=== PATIENT | female | born 1960 | race African-American/Black ===

== ENCOUNTER 2017-01-07 09:26 | Day surgery (SDC) | payer OTHER ==
[2017-01-03 15:56] VITALS: BMI 20.9
[2017-01-07] MEDS ORDERED: LIDOCAINE HCL 1%, 10 MG/ML (20ML VIAL) ONE (10:56)
[2017-01-07] MEDS ORDERED: GENTAMICIN SO4 80 MG/2 ML VIAL ONE (10:58)
[2017-01-07] MEDS ORDERED: EPINEPHrine/PF 1 MG/1 ML (1:1,000) AMPULE ONE (10:58)
[2017-01-07] MEDS ORDERED: ceFAZolin SODIUM 1 GM VIAL ONE ×2 (10:58→11:04)
[2017-01-07] MEDS ORDERED: LIDOCAINE HCL 2% JELLY (5 ML/TUBE) ONE (11:04)
[2017-01-07] MEDS ORDERED: LIDOCAINE HCL/PF 2% SDV 5ML VIAL ONE (11:04)
[2017-01-07] MEDS ORDERED: ONDANSETRON 4 MG/2 ML VIAL ONE ×2 (11:04→14:03)
[2017-01-07] MEDS ORDERED: MIDAZOLAM HCL 2 MG/2 ML SINGLE DOSE VIAL ONE (11:04)
[2017-01-07] MEDS ORDERED: DEXAMETHASONE SOD PHOSPHATE 4 MG/1 ML VIAL ONE (11:04)
[2017-01-07] MEDS ORDERED: PROPOFOL 20 ML ONE (11:04)
[2017-01-07] MEDS ORDERED: SCOPOLAMINE HYDROBROMIDE 1 PATCH PATCH.TD72 ONE (12:06)
[2017-01-07] MEDS ORDERED: ePHEDrine SULFATE 50 MG/1 ML AMPULE ONE (12:08)
[2017-01-07] MEDS ORDERED: DESFLURANE GAS 240 ML BOTTLE IH ONE (12:46)
[2017-01-07] MEDS ORDERED: LACTATED RINGERS SOLUTION 1,000 ML IV SCH (13:45)
--- NOTE | 2017-01-07 13:47 | OP ---
Operative Note - Note: Operative Date: 01/07/17 Pre-Operative Diagnosis: Aquired chest wall deformity Operation: Bilateral silicone implant placement and fat grafting from abd/flank to bilateral breasts. Findings: Asymmetry s/p left breast lumpectomy Post-Operative Diagnosis: Same as Pre-op Surgeon: Arthur Valentine Project Management Advisor: Helen Quiles Anesthesia: MAC Estimated Blood Loss (mls): 20 Drains & Tubes with Location: none Operative Report Dictated: Yes
[2017-01-07 13:57] VITALS: TEMP 97.8
[2017-01-07] MEDS ORDERED: ONDANSETRON 4 MG/2 ML VIAL IVPUSH PRN (14:24)
[2017-01-07] MEDS ORDERED: oxyCODONE HCL 5 MG TABLET PO PRN ×2 (14:24→14:25)
[2017-01-07] MEDS ORDERED: oxyCODONE HCL 5 MG TABLET ONE (15:08)
[2017-01-07 17:17] VITALS: BP 127/83; PULSE 71
--- NOTE | 2017-01-08 20:48 | OP ---
DATE OF OPERATION: 01/07/2017 SURGEON: Robbie Valentine MD LENS INSPECTOR SURGEON: NIKIA Benito PREOPERATIVE DIAGNOSIS: Bilateral acquired chest wall deformity, sputum production partial mastectomy and breast cancer with radiation therapy. POSTOPERATIVE DIAGNOSIS: Bilateral acquired chest wall deformity, sputum production partial mastectomy and breast cancer with radiation therapy. PROCEDURE: 1. Right breast reconstruction utilizing other technique. 2. Left breast reconstruction utilizing other technique. 3. Insertion of left breast permanent implant for breast reconstruction. 4. Insertion of right breast implant for reconstruction. INDICATIONS: The patient is a young woman who underwent previous deforming surgery and radiation therapy for breast cancer. She now presents with gross asymmetry of the chest wall requiring the above procedures. The risks and benefits of surgical versus nonsurgical alternatives as well material complications were described to the patient preoperatively and she understood that significant deformity was being treated because of the asymmetry of the left breast significantly scarred with depressed tightened scar and smaller size from radiation therapy and surgery. DESCRIPTION OF PROCEDURE: The patient was taken to the operating room and after induction of general anesthesia in the supine position, both arms were extended and padded. Venodyne boots were placed. The entire chest wall was prepped with ChloraPrep solution over its entire extent and then attention was turned to prepping and draping. At this point, after timeout, the mastectomy scar on the left breast and the inframammary fold on the right breast were injected with 1% local lidocaine anesthesia, allowing topical anesthesia and hemostasis as well as the flank area for harvest of tissue for reconstruction. At this point, an incision was made down through the skin on the upper chest wall toward the pectoralis major muscle on the left side. It was carried down through the skin to the subcutaneous tissue and down through the very dense scar on the upper chest wall. The adhesions were then broken using electrocautery, allowing elevation of tissues and the dissection was carried down through the lateral border of the pectoralis muscle superiorly. A large amount of scar deformity was seen in the pre and post-pectoral region and then a pocket was developed superiorly from the second rib medially to the sternal fibers down to the inframammary fold and laterally to the anterior axillary line, creating a space for the new reconstructive implant. At this point, the implant was chosen for the left breast. This was a Natrelle Inspira silicone breast implant style SRM 295 mL. This was inserted into the retropectoral pocket using the [place] funnel. Good shape and contour was seen and attention was then turned to the flanks. Incision was made down through the skin and subcutaneous tissue down to the underlying fascia of the abdominal wall and tissue departments from the right and let side symmetrically in order to reconstruct the breast. The tissue was transferred to the back table, prepared, cleansed and ready for reconstruction. Attention was then turned to the right breast. A 4-cm incision in the inframammary fold was carried out and a subglandular pocket on the right breast was carried out for symmetry to reconstruct the chest wall. The same style implant was used, an SRM Natrelle Inspira implant of smaller size because of the significant asymmetry and a 195 mL implant was placed into the right breast pocket. At this point, the tissue was transferred to the right and left breast asymmetrically but in a superior, medial, central and lateral portions of each breast. Good shape and contour was seen after placement of the tissue. All wounds were then copiously irrigated. Hemostasis meticulously obtained throughout and a closure with 2-0 PDS suture in the deep tissue, 3-0 PDS suture in the deep fascia, and 4-0 Biosyn in the subcuticular fascia and the skin. Dry sterile dressings with compression were placed over the breasts themselves. Dermabond was placed Steri-Strips and a fluff dressing with a Surgi-Bra. She tolerated the procedure well. She was awakened, extubated and transferred to the recovery room in satisfactory condition. ROBBIE VALENTINE M.D. [id number]
== END 2017-01-07 17:19 | disposition home or self-care (01) ==
LOC: FASU 09:26
PROVIDERS: ATTEND Plastic Surgery
PROC: 0HUV0JZ Supplement Bilateral Breast with Synthetic Substitute, Open Approach (ICD-10-PCS; 2017-01-07)
PROC: 0HRV07Z Replacement of Bilateral Breast with Autologous Tissue Substitute, Open Approach (ICD-10-PCS; principal; 2017-01-07 11:47)
DX: M95.4 Acquired deformity of chest and rib (principal); Z90.13 Acquired absence of bilateral breasts and nipples; Z85.3 Personal history of malignant neoplasm of breast; Z92.3 Personal history of irradiation
CPT/HCPCS: 94760

== ENCOUNTER 2017-10-07 08:30 | Day surgery (SDC) | payer OTHER ==
[2017-10-05 15:56] VITALS: BMI 21.1
--- NOTE | 2017-10-07 11:06 | HP ---
History & Physical Update - History History: No Change - Physical Physical: No Change - Assessment Assessment: No Change - Plan Plan: No Change (no interval changes since visit with Violeta Shah on 09/29/17. will proceed with surgery as discussed with Dr Valentine)
[2017-10-07] MEDS ORDERED: DEXAMETHASONE SOD PHOSPHATE 4 MG/1 ML VIAL ONE (11:30)
[2017-10-07] MEDS ORDERED: PROPOFOL 20 ML ONE (11:30)
[2017-10-07] MEDS ORDERED: MIDAZOLAM HCL 2 MG/2 ML SINGLE DOSE VIAL ONE (11:30)
[2017-10-07] MEDS ORDERED: LIDOCAINE HCL/PF 2% SDV 5ML VIAL ONE (11:30)
[2017-10-07] MEDS ORDERED: ceFAZolin SODIUM 1 GM VIAL IVPB ONE ×2 (11:50→11:52)
[2017-10-07] MEDS ORDERED: ceFAZolin SODIUM 1 GM VIAL ONE (11:52)
[2017-10-07] MEDS ORDERED: LIDOCAINE 1%/EPI 1:100000 (20 ML MULTI DOSE VIAL) ONE (12:07)
[2017-10-07] MEDS ORDERED: LIDOCAINE 1%/EPI 1:100000 (50 ML MULTI DOSE VIAL) INF ONE (12:10)
[2017-10-07] MEDS ORDERED: ePHEDrine SULFATE 50 MG/1 ML AMPULE ONE (12:36)
[2017-10-07 14:18] VITALS: TEMP 97.9
[2017-10-07 14:39] VITALS: PULSE 70
[2017-10-07 15:37] VITALS: BP 123/79
--- NOTE | 2017-10-07 15:41 | SURG ---
Surgery Surveillance Officer Note Surveillance Officer: Joanne Sheehan PA-C Date of Service: 10/07/17 Diagnosis: breast scar s/p mastectomy with reconstruction Procedure: right breast scar revision left breast mastopexy I was present for the entirety of the operative procedure. For further detail, please refer to operative report. Visit type - Case Type Case Type: Scheduled Admission - Emergency Emergency Visit: No - New patient This patient is new to me today: Yes Date on this admission: 10/07/17
--- NOTE | 2017-10-08 14:56 | OP ---
DATE OF OPERATION: 10/07/2017 SURGEON: Robbie Valentine MD AUTOMATIC SILK SCREEN PRINTER SURGEON: Joanne Sheehan PA-C PREOPERATIVE DIAGNOSES: 1. Bilateral acquired chest wall deformity status post breast cancer and radiation therapy. 2. Asymmetry of reconstructed chest wall. 3. Mechanical complication of radiation therapy. POSTOPERATIVE DIAGNOSES: 1. Bilateral acquired chest wall deformity status post breast cancer and radiation therapy. 2. Asymmetry of reconstructed chest wall. 3. Mechanical complication of radiation therapy. OPERATIVE PROCEDURE: 1. Left breast reconstruction with other technique and tissue rearrangement with Z-plasty. 2. Right breast reduction mammoplasty for symmetry. OPERATIVE INDICATION: Patient is a young woman who underwent the above procedures for reconstruction of the breasts for symmetry as there was unusual acquired deformity of both breasts after previous breast cancer and radiation therapy and surgical technique. The risks and benefits of surgical versus nonsurgical alternatives as well as the material complications were described to the patient on multiple occasions preoperatively as well as today in the operating room where she was discussed the risks and benefits, understood the implications of the scar deformity and agreed to the planned procedure. OPERATIVE PROCEDURE: Patient was taken to the operating room and after induction of general anesthesia in the supine position both arms were extended and padded. Venodyne boots were placed. The entire chest wall was prepped with ChloraPrep solution over its entire extent and timeout was called in the usual fashion. At this point, attention was turned to the mastectomy scar on the left breast. A long lateral incision was seen with contraction, irregularity, indentation and fibrosis on the left chest wall. This was injected with 1% local lidocaine anesthesia with 1:100,000 epinephrine as was the markings which were made on the right breast in the standing position for outline of reduction mammoplasty for symmetry and elevation of the tissues for reduction and contour. After allowing topical anesthesia and hemostasis, attention was then turned to the left breast. The mastectomy scar on the left breast was excised down through the skin to the subcutaneous tissue, down through the subcutaneous tissue which was shown to be indurated, fibrotic and adherent from the underlying scar and radiation therapy. At this point, all tissues were released via electrocautery and optical magnification of 2.5 power. Using the method of , the scar was undermined, but a central portion of scar was left centrally in order to create the new effect for tissue rearrangement. Incisions were then made along the mastectomy scar in Z-plasty fashion, incising flaps in the mid portion to rearrange the tissues in order to accommodate the contracture and release of the nipple-areolar complex scar deformity. These incisions were also made under optical magnification. Hemostasis was meticulously obtained at this point. Attention was then turned to the right breast. The lower portion at the nipple-areolar complex was then incised according to the gab-shaped pattern which was drawn in the superior standing position down through the skin, through the subcutaneous tissue down to the underlying deep tissue of the breast. A block of breast was removed from the central portion of the breast itself in [place] fashion in order to close the breast appropriately and match the opposite reconstructed breast. This tissue was sent for pathologic diagnosis to rule out breast cancer. Copious irrigation of both wounds was carried out independently. The right breast was then closed in multiple layers using 2-0 Vicryl sutures on the deep tissue, approximating the pillars of the right and left portions of the breast, interrupted 3-0 Biosyn suture in the deep dermal fashion and then a running subcutaneous 3-0 V-Loc suture in the deep dermis for the skin. The nipple-areolar complex was incised in a V-shaped fashion to symmetrize the opposite side. This was also closed using a running V-Loc suture. Attention was then turned back to the left breast. The Z-plasty was accomplished, rotated into position, closed with interrupted 3-0 Monocryl sutures on the deep tissue in order to break up the straight line scar. Tissue was then rearranged on the lower portion of the breast, advancing flaps from the superior and medial portions of the breast in order to coapt the incisions in the proper fashion. All tissues were released adequately for a non-tension closure and the wounds were closed in layers using 3-0 Biosyn suture on the deep tissue and a running subcuticular suture with 3-0 V-Loc. Good shape and contour were seen in the sitting position. Both wounds were dressed with Dermabond and Steri-Strips for compression. The patient was placed into a Surgi-Bra. She was awakened, extubated and transferred to the recovery room in satisfactory condition. ROBBIE VALENTINE M.D. [id number]
--- NOTE | 2017-10-10 10:47 | PATH ---
Surgical Pathology Report Patient Name: AMINATA PACHECO [facility]. Rec. #: [id number] /Age/Gender: 1960 (Age: 56) / F Account: [id number] Location: [facility] SURGICAL Taken: 10/07/2017 Received: 10/07/2017 Reported: 10/10/2017 Physicians: Arthur Valentine Specimen(s) Received A: LEFT BREAST TISSUE B: RIGHT BREAST TISSUE Clinical History History of breast cancer Final Diagnosis A. SKIN AND SOFT TISSUE, LEFT BREAST, EXCISION: SKIN WITH DERMAL SCAR, WITH ASSOCIATED FAT NECROSIS AND FOREIGN BODY REACTION. NO CARCINOMA IDENTIFIED. B. RIGHT BREAST TISSUE, MASTOPEXY: BENIGN BREAST TISSUE AND SKIN. NO CARCINOMA IDENTIFIED. Electronically Signed Kristopher Christine M.D. Gross Description A. Received in formalin labeled "left breast tissue," is a 6.0 x 0.9 cm hartman, elliptical, unoriented portion of skin excised to depth of 0.8 cm. The epidermal surface displays a central, linear, well-healed scar. Sectioning reveals foci of white fibrous tissue. No definitive masses are identified. Tree Surgeon sections are submitted in one cassette. B. Received in formalin labeled "right breast tissue," is a 27 g, 6.5 x 4.8 x 1.5 cm aggregate of multiple unoriented portions of fibroadipose tissue and hartman, unremarkable skin. Sectioning reveals foci of white fibrous tissue. No definitive masses are identified. Tree Surgeon sections are submitted in one cassette. /10/07/201710/07/2017
== END 2017-10-07 15:43 | disposition home or self-care (01) ==
LOC: JASU-SURG 08:30
PROVIDERS: ATTEND Plastic Surgery
PROC: 0HNU0ZZ Release Left Breast, Open Approach (ICD-10-PCS; 2017-10-07)
PROC: 0H0T0ZZ Alteration of Right Breast, Open Approach (ICD-10-PCS; 2017-10-07)
PROC: 0HQU0ZZ Repair Left Breast, Open Approach (ICD-10-PCS; principal; 2017-10-07 10:00)
DX: N65.1 Disproportion of reconstructed breast (principal); Z85.3 Personal history of malignant neoplasm of breast; Z92.3 Personal history of irradiation
CPT/HCPCS: 88304-TC; 94760